=== PATIENT | female | born 1990 | race Caucasian/White ===

== ENCOUNTER → 2016-10-04 10:33 | Outpatient (CLI) | payer MEDICAID ==
[~2016-10-04 10:33] MED LIST: PRENATAL COMPLE1 TAB
[2016-10-04 11:26] LABS: APPEARANCE CLEAR (CLEAR); BACTERIA MODERATE /hpf (NONE SEEN); BILIRUBIN NEGATIVE (NEGATIVE); COLOR YELLOW (YELLOW); EPITHELIAL CELLS 0-5 /hpf (0-5); GLUCOSE NEGATIVE (NEGATIVE); KETONE NEGATIVE (NEGATIVE); LEUKOCYTE ESTERASE TRACE (NEGATIVE); MUCUS <1+ /lpf (NONE SEEN); NITRITE NEGATIVE (NEGATIVE); PROTEIN NEGATIVE (NEGATIVE); RED CELLS - URINE NONE SEEN /hpf (0-5); SPECIFIC GRAVITY 1.005 (1.005-1.020); WHITE CELLS - URINE 0-5 /hpf (0-5)
== END | disposition home or self-care (01) ==
LOC: D.LDO 10:33
PROVIDERS: Obstetrics & Gynecology
DX: O26.899 Other specified pregnancy related conditions, unspecified trimester (principal)

== ENCOUNTER → 2016-10-09 18:41 | Outpatient (CLI) | payer MEDICAID | END | disposition home or self-care (01) | LOC: D.LDO 18:41 | DX: Z34.92 Encounter for supervision of normal pregnancy, unspecified, second trimester (principal); Z3A.24 24 weeks gestation of pregnancy ==

== ENCOUNTER 2017-01-24 10:56 | Inpatient (IN) | payer MEDICAID ==
[~2017-01-24] VITALS: Ht 170.2 cm; Wt 85.7 kg
[2017-01-30] MEDS ORDERED: PRENATAL COMPLE1 TAB PO (05:14)
[2017-01-30 05:15] VITALS: BP 126/73; Ht 170.2 cm; Wt 85.7 kg
[2017-01-30 06:48] LABS: HEMATOCRIT 34.8 % (36.0-48.0); HEMOGLOBIN 11.6 g/dL (12-16); MCH 27.6 pg (26.0-34.0); MCHC 33.3 g/dL (31.0-37.0); MCV 82.7 fL (80.0-100.0); MEAN PLATELET VOLUME 11.1 fL (7.4-10.4); RBC 4.21 10x6/uL (4.00-5.40); RDW 13.3 % (11.5-14.5); WBC 8.2 10x3/uL (4.8-10.8)
[2017-01-30 16:44] VITALS: BP 111/56
--- NOTE | 2017-01-30 16:46 | NUR ---
SITTING UP IN BED TALKING WITH VISITORS. FUNDUS UU/FIRM/SCANT LOCHIA WITH MASSAGE.
--- NOTE | 2017-01-30 19:17 | NUR ---
PT RECEIVED TO MY CARE IN ROOM 1274. PT RESTING IN BED IN SEMI-FOWLERS POSITION IN NO ACUTE DISTRESS. PT IS A 26YO G1 NOW P1 WITH OF VIABLE FEMALE INFANT TODAY @ 1038 WITH ASSISTANCE OF ML EPIS AND REPAIR. INFANT @ 40.6 WKS GESTATION. AAOX3. HR REGULAR. LUNGS CTAB. ABDOMEN SOFT AND NON TENDER. FUNDUS FIRM AND ML @ U/-1. LOCHIA RUBRA SCANT. PERINIUM APPEARS TO BE INTACT WITH MINIMAL SWELLING NOTED. WANDA PAD AND PANTIES IN PLACE. PT DENIES DIFFICUTLY VOIDING. STATES SHE HAS NOT PASSED GAS OR HAD A BM SINCE . PT TOLERATING REGULAR DIET WITHOUT DIFFICULTY. NO SWELLING NOTED TO UPPER OR LOWER EXTREMITIES BILATERALLY. 18G SL IN PLACE TO LEFT WRIST. FLUSHED WITH 5CC NS AT THIS TIME WITHOUT DIFFICULTY. NO REDNESS, EDEMA, OR DRAINAGE NOTED TO SITE. PT C/O PAIN RATES /10, REQUESTS MEDICATION. 1 TAB IBUPROFEN AND 100MG DEMEROL PROVIDED PO AT THIS TIME. PT DENIES ANY FURTHER NEEDS. BED IN LOW POSITION, SIDE RAILS UP TIMES 2, CALL LIGHT AND PHONE IN REACH. WILL CONT TO MONITOR PT STATUS. SO REMAINS AT PT BS FOR SUPPORT AND ASSISTANCE.
[2017-01-30 19:41] VITALS: BP 109/58
--- NOTE | 2017-01-30 21:15 | NUR ---
RN TO PT BS TO PROVIDE 2100 DOSE OF MOM. PT RESTING IN BED IN HIGH FOWLERS POSITION, HOLDING , IN NO ACUTE DISTRESS. MOM PROVIDED. PT DENIES ANY FURTHER NEEDS. BED IN LOW POSITION, SIDE RAILS UP TIMES 2, CALL LIGHT AND PHONE IN REACH. SO REMAINS AT PT BS FOR SUPPORT AND ASSISTANCE. INFANT REMAINS AT PT BS FOR COUPLET CARE. WILL CONT TO MONITOR PT STATUS.
--- NOTE | 2017-01-30 21:53 | NUR ---
RN TO PT BS FOR ROUNDS. PT RESTING IN BED IN RIGHT LATERAL POSITION, WITH EYES CLOSED, IN NO ACUTE DISTRESS. RESPIRATIONS EVEN AND UNLABORED. BED IN LOW POSITION, SIDE RAILS UP TIMES 2, CALL LIGHT AND PHONE IN REACH. WILL CONT TO MONITOR PT STATUS.
--- NOTE | 2017-01-31 00:33 | NUR ---
RN TO PT BS FOR ROUNDS. PT RESTING IN BED IN RIGHT LATERAL POSITION, WITH EYES CLOSED, IN NO ACUTE DISTRESS. RESPIRATIONS EVEN AND UNLABORED. BED IN LOW POSITION, SIDE RAILS UP TIMES 2, CALL LIGHT AND PHONE IN REACH. SO REMAINS AT PT BS FOR SUPPORT AND ASSISTANCE. WILL CONT TO MONITOR PT STATUS.
--- NOTE | 2017-01-31 04:36 | NUR ---
RN TO PT BS FOR ROUNDS. PT RESTING IN BED IN LEFT LATERAL POSITION, IN NO ACUTE DISTRESS. RESPIRATIONS EVEN AND UNLABORED. BED IN LOW POSITION, SIDE RAILS UP TIMES 2, CALL LIGHT AND PHONE IN REACH. SO REMAINS AT PT BS FOR SUPPORT AND ASSISTANCE. SO REMAINS AT PT BS FOR SUPPORT AND ASSISTANCE. WILL CONT TO MONITOR PT STATUS.
--- NOTE | 2017-01-31 05:02 | NUR ---
RN CALLED TO PT BS. REQUESTS LINENS PROVIDED TO SHOWER. PROVIDED WITH PANTIES. PT DENIES ANY FURTHER NEEDS AT THIS TIME. BED IN LOW POSITION, SIDE RAILS UP TIMES 2, CALL LIGHT AND PHONE IN REACH. WILL CONT TO MONITOR PT STATUS.
[2017-01-31 07:27] LABS: RAPID PLASMA REAGIN Non Reactive (Non Reactive)
[2017-01-31 07:30] VITALS: BP 110/69
--- NOTE | 2017-01-31 07:30 | NUR ---
PT IS SITTING UP IN BED EATING BREAKFAST. VSS. SHE STATES HER PAIN IS A 2. GEN- AWAKE AND ALERT. LUNGS- CLEAR. HEART- RRR. ABD- SOFT, WITH TENDERNESS. SMALL LOCIA RUBRA. EXT- NO EDEMA. BED IS LOW. SIDE RAILS UP X 2 AND CALL LIGHT IN REACH. SALINE LOCK WAS REMOVED FROM LEFT WRIST. TIP INTACT.
--- NOTE | 2017-01-31 08:56 | NUR ---
PT IS UP AMBULATORY IN HALLWAY. SHE OFFERS NO COMPLAINTS,
--- NOTE | 2017-01-31 09:30 | NUR ---
PT REQUESTED PAIN MED. STATES PAIN IS A 5-6. TYLENOL #3 GIVEN PO. ALSO GAVE PT DERMOPLAST SPRAY, EPIFOAM AND TUCKS PADS TO USE FOR PERINEAL CARE.
--- NOTE | 2017-01-31 10:38 | NUR ---
PT IS RESTING IN BED HOLDING BABY. SHE STATES THAT DR BEY WANTS TO SEE HOW BABIES NEXT 3 FEEDINGS GO AND IF SHE DOES OK THEY CAN BE DISCHARGED. SHE STATES HER PAIN IS MUCH BETTER.
--- NOTE | 2017-01-31 13:53 | NUR ---
BABY IS EATING BETTER. SHE TOOK 40 ML OF HER BOTTLE. PT OFFERS NO COMPLAINTS.
[2017-01-31] MEDS ORDERED: IBUPROFEN100 MG/5 M (15:24)
[2017-01-31] MEDS ORDERED: IBUPROFEN600 MG PO (15:24)
--- NOTE | 2017-01-31 15:53 | NUR ---
PT WAS GIVEN HER MMR R ARM.
--- NOTE | 2017-01-31 17:00 | NUR ---
PT LEAVING POST DISCHARGE. PT REFUSES WHEELCHAIR AND WANTS TO AMBULATE.
== END 2017-01-31 17:00 | disposition home or self-care (01) | DRG 775 ==
LOC: D.LD 10:56 → D.WS 01-30 04:41 → D.LD 01-30 04:41 → D.WS 01-31 07:37
PROVIDERS: ADMIT Obstetrics & Gynecology
PROC: 10E0XZZ Delivery of Products of Conception, External Approach (ICD-10-PCS; principal; 2017-01-30)
PROC: 3E033VJ Introduction of Other Hormone into Peripheral Vein, Percutaneous Approach (ICD-10-PCS; 2017-01-30)
PROC: 0W8NXZZ Division of Female Perineum, External Approach (ICD-10-PCS; 2017-01-30)
PROC: 10907ZC Drainage of Amniotic Fluid, Therapeutic from Products of Conception, Via Natural or Artificial Opening (ICD-10-PCS; 2017-01-30)
DX: O48.0 Post-term pregnancy (principal); Z3A.41 41 weeks gestation of pregnancy; Z37.0 Single live birth; O43.123 Velamentous insertion of umbilical cord, third trimester; O77.0 Labor and delivery complicated by meconium in amniotic fluid; O75.89 Other specified complications of labor and delivery; R00.1 Bradycardia, unspecified

== ENCOUNTER → 2017-01-25 08:47 | Outpatient (CLI) | payer MEDICAID | END | disposition home or self-care (01) | LOC: D.LDO 08:47 | DX: O48.0 Post-term pregnancy (principal); Z3A.40 40 weeks gestation of pregnancy ==

== ENCOUNTER → 2017-01-29 11:26 | Outpatient (CLI) | payer MEDICAID ==
[~2017-01-29 11:26] MED LIST changes: +PRENATAL COMPLE1 TAB PO
[2017-01-30 05:15] VITALS: BMI 29.6
== END | disposition home or self-care (01) ==
LOC: D.LDO 11:26
DX: O48.0 Post-term pregnancy (principal); Z3A.40 40 weeks gestation of pregnancy